=== PATIENT | male | born 2005 | race African-American/Black ===

== ENCOUNTER 2024-05-03 19:43 | Emergency (ER) | payer SELFPAY ==
[~2024-05-03] VITALS: Ht 180.3 cm; Wt 83.9 kg
== END 2024-05-03 23:34 | disposition home or self-care (01) ==
LOC: ER 19:43
DX: J02.9 Acute pharyngitis, unspecified (principal); Z88.0 Allergy status to penicillin
CPT/HCPCS: 87081; 87430; 99283